=== PATIENT | male | born 1990 | race Native Hawaiian/Other Pacific Islander ===

== ENCOUNTER 2019-06-13 15:44 | Emergency (ER) | payer OTHER ==
[~2019-06-13] VITALS: Ht 182.9 cm; Wt 79.4 kg
[2019-06-13 15:59] VITALS: TEMP 98.2
[2019-06-13 17:50] VITALS: BP 134/70
== END 2019-06-13 17:50 | disposition home or self-care (01) ==
LOC: ED 15:44
DX: S90.32XA Contusion of left foot, initial encounter (principal); X50.1XXA Overexertion from prolonged static or awkward postures, initial encounter
CPT/HCPCS: 96372; 99283; J1885

== ENCOUNTER 2019-12-08 20:31 | Emergency (ER) | payer OTHER ==
[~2019-12-08] VITALS: Ht 182.9 cm; Wt 79.4 kg
[2019-12-08 21:37] VITALS: BP 174/82; TEMP 98.7
== END 2019-12-08 21:38 | disposition home or self-care (01) ==
LOC: ED 20:31
DX: K08.89 Other specified disorders of teeth and supporting structures (principal); K04.7 Periapical abscess without sinus; Z79.2 Long term (current) use of antibiotics
CPT/HCPCS: 96372; 99283; J1885

== ENCOUNTER 2023-01-15 19:21 | Emergency (ER) | payer OTHER ==
[~2023-01-15] VITALS: Ht 182.9 cm; Wt 83.9 kg
[2023-01-15 19:21] VITALS: BP 112/68; TEMP 97.6
== END 2023-01-15 21:02 | disposition left against medical advice (07) ==
LOC: ED 19:21
DX: S87.82XA Crushing injury of left lower leg, initial encounter (principal); Z72.0 Tobacco use; F10.90 Alcohol use, unspecified, uncomplicated; W23.0XXA Caught, crushed, jammed, or pinched between moving objects, initial encounter
CPT/HCPCS: 99284; Q9963